=== PATIENT | female | born 1995 | race Caucasian/White ===

== ENCOUNTER 2021-01-28 13:26 | Emergency (ER) | payer SELFPAY ==
[2021-01-28 13:57] LABS: BASO # 0.01 (0.02-0.10); EOS # 0.02 (0.04-0.40); EOS % 0.2 % (1.0-5.0); HEMATOCRIT 40.2 % (37.0-47.0); HEMOGLOBIN 13.2 g/dL (12.5-16.0); LYMPH# 1.51 (1.50-4.00); MEAN CELL VOLUME 99 fl (78-100); MEAN CORPUSCULAR HEMOGLOBIN 32 pg (27-31); MEAN CORPUSCULAR HGB CONC 33 g/dL (33-37); MEAN PLATELET VOLUME 8.5 fl (7.4-10.4); MONO # 0.61 (0.20-0.80); NEU # 7.48 (1.40-6.50); PLATELET COUNT 253 K/mm3 (130-400); RED BLOOD COUNT 4.07 M/mm3 (4.10-5.30); RED CELL DISTRIBUTION WIDTH 11.9 % (11.5-14.5); WHITE BLOOD COUNT 9.6 K/mm3 (4.8-10.8)
[2021-01-28 14:09] LABS: ALBUMIN 4.1 g/dL (3.5-5.0); POTASSIUM 4.1 mmol/L (3.5-5.1); SODIUM 141 mmol/L (136-145)
[2021-01-28 14:10] LABS: CALCIUM 10.1 mg/dL (8.3-10.5)
[2021-01-28 14:12] LABS: GLUCOSE 79 mg/dL (65-105); TOTAL PROTEIN 7.1 g/dL (6.4-8.3)
[2021-01-28 14:13] LABS: CARBON DIOXIDE 22 mmol/L (22-29); TOTAL BILIRUBIN 0.7 mg/dL (0.2-1.2)
[2021-01-28 14:15] LABS: ALCOHOL IN-HOUSE < 10 mg/dL (<10)
[2021-01-28 14:17] LABS: AST-SGOT 23 U/L (5-34)
[2021-01-28 14:19] LABS: ALT/SGPT 13 U/L (0-55)
[2021-01-28 14:23] LABS: ACETAMINOPHEN < 1 ug/mL
[2021-01-28 19:10] VITALS: BP 119/74
== END 2021-01-28 19:10 | disposition home or self-care (01) ==
LOC: ED 13:26
PROVIDERS: Nurse Practitioner
DX: T42.6X2A Poisoning by other antiepileptic and sedative-hypnotic drugs, intentional self-harm, initial encounter (principal); T45.0X2A Poisoning by antiallergic and antiemetic drugs, intentional self-harm, initial encounter; F17.200 Nicotine dependence, unspecified, uncomplicated

== ENCOUNTER → 2023-12-22 | Outpatient (REF) | payer BC ==
[~2023-12-22] MED LIST: ACYLOVIR PO
== END ==
LOC: LAB 14:50
DX: Z20.822 Contact with and (suspected) exposure to COVID-19 (principal)